=== PATIENT | female | born 1975 | race Caucasian/White ===

== ENCOUNTER 2017-02-23 21:55 | Emergency (ER) | payer BC ==
[2017-02-23 22:11] VITALS: BP 169/104; PULSE 103; RESP 20; TEMP 98.1
--- NOTE | 2017-02-23 23:26 | ED ---
Lower Extremity Injury HPI - General Chief Complaint: Extremity Injury, Lower Stated Complaint: rt ankle injury Time Seen by Provider: 02/23/17 22:10 Source: patient, RN notes reviewed, old records reviewed Mode of arrival: ambulatory Limitations: no limitations - History of Present Illness Initial Comments: //,=.u] \- This is a 41 year old female with CC of right ankle pain and swelling after slipping on a soda while at the mall. Patient reports she can walk and bear weight over her foot. She denies any numbness or tingling. She reports no previous injury to foot or ankle. She states that she has no significant deformity, and she does have range of motion of her foot and ankle. Denies any head injury, or LOC. Denies any other injury related to the fall. Denies any headache, abdominal pain, chest pain, nausea, vomiting. - Related Data Home Medications Medication Instructions Recorded Confirmed Ibuprofen [Advil] 400 mg PO Q8HR PRN 12/20/15 12/20/15 Allergies Allergy/AdvReac Type Severity Reaction Status Date / Time azithromycin Allergy Unknown Verified 02/23/17 22:11 ciprofloxacin Allergy Unknown Verified 02/23/17 22:11 Penicillins Allergy Unknown Verified 02/23/17 22:11 sulfamethoxazole Allergy Unknown Verified 02/23/17 22:11 [From Bactrim] trimethoprim [From Bactrim] Allergy Unknown Verified 02/23/17 22:11 Review of Systems ROS Statement: Those systems with pertinent positive or pertinent negative responses have been documented in the HPI. ROS Other: All systems not noted in ROS Statement are negative. Past Medical History Past Medical History: No Reported History History of Any Multi-Drug Resistant Organisms: None Reported Past Surgical History: No Surgical Hx Reported Past Psychological History: Anxiety Smoking Status: Never smoker Past Alcohol Use History: Occasional Past Drug Use History: None Reported General Exam - General Exam Comments Initial Comments: Well appearing 41 year male, no distress. Limitations: no limitations General appearance: alert, in no apparent distress Head exam: Present: atraumatic, normocephalic, normal inspection Eye exam: Present: normal appearance, PERRL, EOMI. Absent: scleral icterus, conjunctival injection, periorbital swelling ENT exam: Present: normal exam, mucous membranes moist Neck exam: Present: normal inspection. Absent: tenderness, meningismus, lymphadenopathy Cardiovascular Exam: Present: regular rate, normal rhythm, normal heart sounds. Absent: systolic murmur, diastolic murmur, rubs, gallop, clicks GI/Abdominal exam: Present: soft, normal bowel sounds. Absent: distended, tenderness, guarding, rebound, rigid Extremities exam: Present: normal inspection, full ROM, normal capillary refill. Absent: tenderness, pedal edema, joint swelling, calf tenderness Right Knee exam: Present: normal inspection, full ROM Lower Leg exam: Present: normal inspection, full ROM Ankle exam: Present: normal inspection, full ROM, swelling (minor swelling over lateral malleoulus) Foot/Toe exam: Present: normal inspection, full ROM Neurovascular tendon exam: Present: no vascular compromise Gait: observed and normal Back exam: Present: normal inspection Neurological exam: Present: alert, oriented X3, CN II-XII intact Psychiatric exam: Present: normal affect, normal mood Skin exam: Present: warm, dry, intact, normal color. Absent: rash Course Vital Signs 02/23/17 22:09 Temperature 98.1 F Pulse Rate 103 H Respiratory 20 Rate Blood Pressure 169/104 O2 Sat by Pulse 97 Oximetry Procedures - Orthopedic Splinting/Casting Injury #1 Side: right Lower Extremity Injury Location: ankle Lower Extremity Immobilizer: AirCast, Markell wrap Other Orthopedic Equipment: crutches Medical Decision Making - Medical Decision Making Patient is a 41 year old female with rightt ankle pain after rolling it after slipping on cola at the mall. Patient is able to bear weight, minor swelling over lateral malleolus. Full range of motion of ankle, nad patient is neurovascularly intact. Xray shows some soft tissue swelling, no fracture. PAtient foot xray shows no fracture. Patient placed in MARKELL wrap and air cast for ankle sprain, discussed follow up with orthopedic if symptoms persist after a week. Patient written for crutches. Patient agrees to treatment plan and will comply, return parameters discussed. - Radiology Data Radiology results: report reviewed Soft tissue swelling over ankle, no fracture or dislocation. Disposition Clinical Impression: Right ankle sprain Disposition: HOME SELF-CARE Condition: Good Instructions: Ankle Sprain (ED) Additional Instructions: Rest, ice, and elevate extremity. Ambulate with crutches and wear the Markell wrap and ankle stirrup splint. Follow-up with orthopedic if symptoms continue to persist. Return to emergency department if any alarming signs or symptoms occur. Referrals: None,Stated [Primary Care Provider] - 1-2 days Time of Disposition: 23:24
--- NOTE | 2017-02-23 23:32 | XR ---
EXAM: XR Right Ankle Complete, 3 or More Views CLINICAL HISTORY: Reason: Pain TECHNIQUE: Frontal, lateral and oblique views of the right ankle. COMPARISON: No relevant prior studies available. FINDINGS: Bones/joints: No evidence of fracture, dislocation or bony erosion. No significant arthritic changes. Small plantar calcaneal spur. Soft tissues: Soft tissue swelling about the ankle most prominent about the lateral aspect of ankle and region of lateral malleolus. IMPRESSION: Soft tissue swelling about the ankle. No underlying acute bone or joint abnormalities.
--- NOTE | 2017-02-23 23:38 | XR ---
EXAM: XR Right Foot Complete, 3 or More Views CLINICAL HISTORY: Reason: Pain TECHNIQUE: Frontal, lateral and oblique views of the right foot. COMPARISON: No relevant prior studies available. FINDINGS: Bones/joints: No evidence of fracture or dislocation. No significant arthritic changes. No evidence of bony erosion. Small plantar calcaneal spur. Soft tissues: No radiopaque foreign body. IMPRESSION: No acute bone or joint abnormalities.
== END 2017-02-23 23:37 | disposition home or self-care (01) ==
LOC: EC 21:55
DX: S93.401A Sprain of unspecified ligament of right ankle, initial encounter (principal); Z88.0 Allergy status to penicillin; Z88.1 Allergy status to other antibiotic agents; W01.0XXA Fall on same level from slipping, tripping and stumbling without subsequent striking against object, initial encounter; Y92.59 Other trade areas as the place of occurrence of the external cause
CPT/HCPCS: 99284

== ENCOUNTER 2021-05-30 15:10 | Emergency (ER) | payer BC ==
[2021-05-30 15:32] VITALS: BP 143/95; PULSE 111; RESP 20; TEMP 98.5
[2021-05-30] MEDS ORDERED: BAMLANIVIMAB (EUA) 700 MG, ETESEVIMAB (EUA) 1,400 MG in SODIUM CHLORIDE 0.9% 100 ML IVPB ONE (16:30)
[2021-05-30] MEDS ORDERED: SODIUM CHLORIDE 0.9% 50 ML IVPB ONE (16:30)
--- NOTE | 2021-05-30 16:54 | ED ---
General Adult HPI - General Chief complaint: Upper Respiratory Infection Stated complaint: Covid+,Wants antibody Time Seen by Provider: 05/30/21 15:36 Source: patient, RN notes reviewed Mode of arrival: ambulatory Limitations: no limitations - History of Present Illness Initial comments: 46-year-old female presents to the emergency room for chief complaint of antibody infusion. Patient is COVID-19 positive. She had a positive test on the but developed symptoms on the or less than a week ago. Patient states she has had a cough congestion and weakness. She has slight shortness of breath. Patient has had fevers on and off. Patient is vaccinated with the [employer] vaccine.Patient has no other complaints at this time including shortness of breath, chest pain, abdominal pain, nausea or vomiting, headache, or visual changes. - Related Data Home Medications Medication Instructions Recorded Confirmed Ibuprofen [Advil] 400 mg PO Q8HR PRN 12/20/15 12/20/15 Previous Rx's Medication Instructions Recorded Benzonatate [Tessalon Perles] 200 mg PO Q8H PRN #15 capsule 05/30/21 Allergies Allergy/AdvReac Type Severity Reaction Status Date / Time azithromycin Allergy Unknown Verified 05/30/21 15:32 ciprofloxacin Allergy Unknown Verified 05/30/21 15:32 Penicillins Allergy Unknown Verified 05/30/21 15:32 sulfamethoxazole Allergy Unknown Verified 05/30/21 15:32 [From Bactrim] trimethoprim [From Bactrim] Allergy Unknown Verified 05/30/21 15:32 Review of Systems ROS Statement: Those systems with pertinent positive or pertinent negative responses have been documented in the HPI. ROS Other: All systems not noted in ROS Statement are negative. Past Medical History Past Medical History: No Reported History History of Any Multi-Drug Resistant Organisms: None Reported Past Surgical History: No Surgical Hx Reported Past Psychological History: Anxiety Smoking Status: Never smoker Past Alcohol Use History: Occasional Past Drug Use History: None Reported General Exam Limitations: no limitations General appearance: alert, in no apparent distress Head exam: Present: atraumatic Eye exam: Present: normal appearance, PERRL, EOMI. Absent: scleral icterus, conjunctival injection ENT exam: Present: normal exam, mucous membranes moist Neck exam: Present: normal inspection, full ROM. Absent: tenderness Respiratory exam: Present: normal lung sounds bilaterally. Absent: respiratory distress, wheezes Cardiovascular Exam: Present: regular rate, normal rhythm, normal heart sounds GI/Abdominal exam: Present: soft. Absent: distended, tenderness Course Vital Signs 05/30/21 15:30 Temperature 98.5 F Pulse Rate 111 H Respiratory 20 Rate Blood Pressure 143/95 O2 Sat by Pulse 97 Oximetry Medical Decision Making - Medical Decision Making vitals are stable. Patient is well-appearing. Patient did test positive for COVID-19. Patient given antibody infusion as she does qualify and monitored for an hour. Patient will be discharged home to follow up with primary care and will return here for any worsening symptoms. - Lab Data Lab Results 05/30/21 Range/Units 16:01 Coronavirus (PCR) Detected A (Not Detectd) Disposition Clinical Impression: COVID-19 Disposition: HOME SELF-CARE Condition: Good Instructions (If sedation given, give patient instructions): Coronavirus Disease 2019 (COVID-19) Additional Instructions: please take vitamins C, D, and zinc [id number]. Drink Plenty of fluid. Take cough medicine as directed. Follow-up with your doctor. Return here for any worsening symptoms especially shortness of breath. Prescriptions: Benzonatate [Tessalon Perles] 200 mg PO Q8H PRN #15 capsule PRN Reason: Cough Is patient prescribed a controlled substance at d/c from ED?: No Referrals: Reshma Suh MD [STAFF PHYSICIAN] - 1-2 days Time of Disposition: 16:55
== END 2021-05-30 18:35 | disposition home or self-care (01) ==
LOC: EC 15:10
DX: U07.1 COVID-19 (principal); F41.9 Anxiety disorder, unspecified; Z79.1 Long term (current) use of non-steroidal anti-inflammatories (NSAID); Z79.899 Other long term (current) drug therapy; Z88.1 Allergy status to other antibiotic agents; Z88.0 Allergy status to penicillin
CPT/HCPCS: 87635; 99284; J3490

== ENCOUNTER → 2021-11-22 | Outpatient (CLI) | payer BC ==
[2021-11-22 11:12] VITALS: BMI 44.1
== END ==
LOC: DBWHC3 09:48
PROVIDERS: ATTEND Family Medicine
DX: E11.65 Type 2 diabetes mellitus with hyperglycemia (principal); Z79.84 Long term (current) use of oral hypoglycemic drugs; Z88.1 Allergy status to other antibiotic agents; Z91.012 Allergy to eggs; Z91.09 Other allergy status, other than to drugs and biological substances; Z88.0 Allergy status to penicillin; Z88.2 Allergy status to sulfonamides
CPT/HCPCS: G0108 ×3

== ENCOUNTER → 2021-11-28 | Outpatient (CLI) | payer BC ==
--- NOTE | 2021-12-06 08:49 | MM ---
Reason for Exam: Screening (asymptomatic). Last mammogram was performed 8 year(s) and 3 month(s) ago. Patient History: Menarche at age 12. First Full-Term at age 28. Premenopausal. Risk Values: Neela 5 year model risk: 0.9%. NCI Lifetime model risk: 10.5%. Tissue Density: The breast tissue is heterogeneously dense. This may lower the sensitivity of mammography. Findings: Analyzed By CAD. Benign-appearing bilateral axillary lymph nodes are redemonstrated. There is no suspicious group of microcalcifications or new suspicious mass in either breast. Overall Assessment: Negative, BI-RAD 1 Management: Screening Mammogram of both breasts in 1 year. Some advise bilateral breast ultrasound surveillance in patients with background dense tissue. Electronically signed and approved by: Rodrigo Sanchez M.D.
== END | disposition home or self-care (01) ==
LOC: RADMAMWWP 06:57
PROVIDERS: ATTEND Family Medicine
DX: Z12.31 Encounter for screening mammogram for malignant neoplasm of breast (principal)
CPT/HCPCS: 77063; 77067

== ENCOUNTER → 2023-09-16 | Outpatient (CLI) | payer BC ==
--- NOTE | 2023-09-17 14:17 | MM ---
Reason for Exam: Screening (asymptomatic). Last mammogram was performed 1 year(s) and 9 month(s) ago. Patient History: Menarche at age 12. First Full-Term at age 28. Premenopausal. Risk Values: Neela 5 year model risk: 1.0%. NCI Lifetime model risk: 10.2%. Prior Study Comparison: 08/14/2013 Bilateral MG diagnostic mammo w CAD [facility] - 2, [facility]. 08/27/2013 [place]21 Bilateral MG 3D screening mammo w/cad, [facility]. Tissue Density: The breasts are extremely dense, which lowers the sensitivity of mammography. Findings: Analyzed By CAD. There is no suspicious group of microcalcifications or new suspicious mass in either breast. Overall Assessment: Negative, BI-RAD 1 Management: Screening Mammogram of both breasts in 1 year. . Patient should continue monthly self-breast exams. A clinical breast exam by your physician is recommended on an annual basis. This exam should not preclude additional follow-up of suspicious palpable abnormalities. Note on Neela scores and lifetime risk: 1. A Neela score greater than 3% is considered moderate risk. If this is the case, consider specialist referral to assess eligibility for a risk reducing agent. 2. If overall lifetime risk for the development of breast cancer is 20% or higher, the patient may qualify for future screening with alternating mammogram and breast MRI. Electronically signed and approved by: Dante Hall M.D. Radiologis
== END | disposition home or self-care (01) ==
LOC: RADMAMWWP 06:57
PROVIDERS: ATTEND Family Medicine
DX: Z12.31 Encounter for screening mammogram for malignant neoplasm of breast (principal)
CPT/HCPCS: 77063; 77067